=== PATIENT | female | born 1975 | race Caucasian/White ===

== ENCOUNTER 2017-08-24 15:31 | Emergency (ER) | payer SELFPAY ==
[~2017-08-24] VITALS: Ht 162.6 cm; Wt 70.0 kg
[2017-08-24 15:36] VITALS: PULSE 109; RESP 24; TEMP 98.2
[2017-08-24 15:43] VITALS: BP 117/82; PULSE 100
[2017-08-24] MEDS ORDERED: ASPIRIN 81 MG CHEW TAB PO ONE (15:45)
[2017-08-24] MEDS ORDERED: SODIUM CHLORIDE 0.9% FLUSH 10 ML FLUSH IVF PRN (15:45)
[2017-08-24] MEDS ORDERED: LORazepam 2 MG/ML VIAL IV PUSH ONE (15:45)
--- NOTE | 2017-08-24 16:04 | PD ---
HPI . Chest pain and shortness of breath Chief Complaint: Chest Pain Time Seen by Provider: 15:39 Travel History International Travel<30 days: No Contact w/Intl Traveler<30days: No Traveled to known affect area: No History of Present Illness HPI This patient presents to us by [facility] with the chief complaint of chest pain shortness of breath. Her states that it started a couple of hours ago. The patient states that she has been having some chest pain for the last couple of days. He states that she has not complained with chest pain until today. He reports a history of fibromyalgia and SLE which was treated in the [place] with various different medications. These medications made her hallucinate. All medications were eventually stopped. He states that she has not had an episode in 3 years. They have subsequently moved to [facility]. She has not established care since moving here. Onset: 2 hours Quality of pain: Sharp Severity: 9/10 Associated symptoms: Shortness of breath Modifying factors: None Context: History of fibromyalgia and SLE PFSH Past Medical History Autoimmune Disease: Yes (lupus) Fibromyalgia: Yes Tetanus Vaccination: Unknown Influenza Vaccination: No ?: Unknown Past Surgical History Abdominal Surgery: Yes (double hernia repair) Social History Alcohol Use: Yes (occasional) Tobacco Use: Yes (/ ppd) Substance Use: No Allergies-Medications (Allergen,Severity, Reaction): Coded Allergies: No Known Allergies (Unverified , 08/24/17) Reported Meds & Prescriptions Reported Meds & Active Scripts Active No Active Prescriptions or Reported Medications Review of Systems Except as stated in HPI: all other systems reviewed are Neg Physical Exam Narrative GENERAL: The patient presents via EVAC moaning loudly. SKIN: warm/dry. Her face is red. HEAD: Normocephalic. Atraumatic. EYES: Pupils equal and round. No scleral icterus. No injection or drainage. ENT: No nasal bleeding or discharge. Mucous membranes pink and moist. NECK: Trachea midline. Full range of motion without pain.. CARDIOVASCULAR: Regular rate and rhythm. Heart sounds are normal. RESPIRATORY: No accessory muscle use. Clear to auscultation. Breath sounds equal bilaterally. Mild anterior chest wall tenderness. GASTROINTESTINAL: Abdomen soft. Nontender. Bowel sounds present. Nondistended. MUSCULOSKELETAL: No obvious deformities. No calf tenderness or swelling noted. NEUROLOGICAL: Awake and alert. No obvious cranial nerve deficits. Motor grossly within normal limits. Normal speech. PSYCHIATRIC: Appropriate mood and affect; insight and judgment normal. Data Data Last Documented VS Vital Signs Date Time Temp Pulse Resp B/P (MAP) Pulse Ox O2 Delivery O2 Flow Rate FiO2 08/24/17 15:43 100 117/82 (94) 08/24/17 15:36 98.2 24 Orders Orders Electrocardiogram (08/24/17 15:40) Basic Metabolic Panel (Bmp) (08/24/17 15:40) Complete Blood Count With Diff (08/24/17 15:40) D-Dimer (08/24/17 15:40) Magnesium (Mg) (08/24/17 15:40) Prothrombin Time / Inr (Pt) (08/24/17 15:40) Act Partial Throm Time (Ptt) (08/24/17 15:40) Troponin I (08/24/17 15:40) Chest, Single Ap (08/24/17 15:40) Ecg Monitoring (08/24/17 15:40) Iv Access Insert/Monitor (08/24/17 15:40) Oximetry (08/24/17 15:40) Aspirin Chew (Aspirin Chew) (08/24/17 15:45) Sodium Chloride 0.9% Flush (Ns Flush) (08/24/17 15:45) Lorazepam Inj (Ativan Inj) (08/24/17 15:45) Labs Laboratory Tests Test 08/24/17 15:52 White Blood Count 11.5 TH/MM3 Red Blood Count 5.09 MIL/MM3 Hemoglobin 15.0 GM/DL Hematocrit 44.5 % Mean Corpuscular Volume 87.3 FL Mean Corpuscular Hemoglobin 29.4 PG Mean Corpuscular Hemoglobin Concent 33.7 % Red Cell Distribution Width 14.2 % Platelet Count 477 TH/MM3 Mean Platelet Volume 7.5 FL Neutrophils (%) (Auto) 58.5 % Lymphocytes (%) (Auto) 36.3 % Monocytes (%) (Auto) 4.0 % Eosinophils (%) (Auto) 0.3 % Basophils (%) (Auto) 0.9 % Neutrophils # (Auto) 6.8 TH/MM3 Lymphocytes # (Auto) 4.2 TH/MM3 Monocytes # (Auto) 0.5 TH/MM3 Eosinophils # (Auto) 0.0 TH/MM3 Basophils # (Auto) 0.1 TH/MM3 CBC Comment DIFF FINAL Differential Comment Prothrombin Time 9.7 SEC Prothromb Time International Ratio 1.0 RATIO Activated Partial Thromboplast Time 28.8 SEC D-Dimer Quantitative (PE/DVT) 0.48 MG/L FEU Blood Urea Nitrogen 11 MG/DL Creatinine 0.79 MG/DL Random Glucose 87 MG/DL Calcium Level 8.8 MG/DL Magnesium Level 2.3 MG/DL Sodium Level 139 MEQ/L Potassium Level 4.2 MEQ/L Chloride Level 101 MEQ/L Carbon Dioxide Level 23.0 MEQ/L Anion Gap 15 MEQ/L Estimat Glomerular Filtration Rate 81 ML/MIN Troponin I LESS THAN 0.02 NG/ML MDM Medical Decision Making Medical Screen Exam Complete: Yes Emergency Medical Condition: Yes Interpretation(s) EKG shows a sinus tachycardia with no acute ischemic changes. Differential Diagnosis Differential diagnosis of chest pain includes but is not limited to musculoskeletal pain, pulmonary embolism, acute coronary syndrome, pneumonia, pleurisy Narrative Course This patient presents for the evaluation of chest pain or shortness of breath. She has been given aspirin. She has also been given Ativan 2 mg IV. Chest pain workup including a d-dimer are in process. CBC & BMP Diagram 08/24/17 15:52 Calcium Level 8.8, Magnesium Level 2.3 Troponin < 0.02 D-dimer 0.48 Last Impressions Chest X-Ray 08/24/17 1540 Signed Impressions: Service Date/Time: Thursday, August 24, 2017 15:56 - CONCLUSION: 1. No acute cardiopulmonary findings. Toño Luis MD The chest x-ray was independently reviewed by me. The patient is now sound asleep following Ativan. I have discussed her disposition with her . He is comfortable taking her home. He feels that her current episode is related to her fibromyalgia. I will discharge her to home. Diagnosis Primary Impression: Chest pain Qualified Codes: R07.9 - Chest pain, unspecified Additional Impression: Dyspnea Qualified Codes: R06.00 - Dyspnea, unspecified Patient Instructions: Chest Pain (DC), General Instructions, Shortness of Breath (DC) Scripts No Active Prescriptions or Reported Meds Disposition: DISCHARGE HOME Condition: Stable Ebony Bran MD August 24, 2017 16:04
[2017-08-24 16:05] LABS: AUTOMATED NEUTROPHIL # 6.8 TH/MM3 (1.8-7.7); BASOPHIL # 0.1 TH/MM3 (0-0.2); BASOPHIL % 0.9 % (0.0-2.0); EOSINOPHIL % 0.3 % (0.0-4.0); HEMATOCRIT 44.5 % (35.0-46.0); LYMPH % 36.3 % (9.0-44.0); LYMPHOCYTE # 4.2 TH/MM3 (1.0-4.8); MEAN CELL VOLUME 87.3 FL (80.0-100.0); MEAN CORPUSCULAR HEMOGLOBIN 29.4 PG (27.0-34.0); MEAN CORPUSCULAR HGB CONC 33.7 % (32.0-36.0); MEAN PLATELET VOLUME 7.5 FL (7.0-11.0); MONOCYTE # 0.5 TH/MM3 (0-0.9); NEUT % 58.5 % (16.0-70.0); PLATELET COUNT 477 TH/MM3 (150-450); RED BLOOD COUNT 5.09 MIL/MM3 (4.00-5.30); RED CELL DISTRIBUTION WIDTH 14.2 % (11.6-17.2); WHITE BLOOD COUNT 11.5 TH/MM3 (4.0-11.0)
--- NOTE | 2017-08-24 16:14 | RADRPT ---
EXAM DATE/TIME: 08/24/2017 15:56 [facility] COMPARISON: No previous studies available for comparison. INDICATIONS : Patient complains of chest pain. MEDICAL HISTORY : None. SURGICAL HISTORY : None. ENCOUNTER: Initial ACUITY: 2 days PAIN SCORE: 5/10 LOCATION: chest FINDINGS: A single view of the chest demonstrates the lungs to be symmetrically aerated without evidence of mas s, infiltrate or effusion. The cardiomediastinal contours are unremarkable. Osseous structures are intact. CONCLUSION: 1. No acute cardiopulmonary findings. Toño Luis MD on August 24, 2017 at 16:12 Board Certified Radiologist. This report was verified electronically.
[2017-08-24 16:16] LABS: BLOOD UREA NITROGEN 11 MG/DL (7-18); CALCIUM 8.8 MG/DL (8.5-10.1); CHLORIDE 101 MEQ/L (98-107); CREATININE 0.79 MG/DL (0.50-1.00); GLOMERULAR FILTRATION RATE 81 ML/MIN (>89); GLUCOSE,RANDOM 87 MG/DL (74-106); MAGNESIUM 2.3 MG/DL (1.5-2.5); SODIUM (NA) 139 MEQ/L (136-145)
[2017-08-24 16:17] LABS: PROTHROMBIN TIME - PATIENT 9.7 SEC (9.8-11.6)
[2017-08-24 16:20] LABS: TROPONIN I LESS THAN 0.02 NG/ML (0.02-0.05)
[2017-08-24 16:27] LABS: D-DIMER 0.48 MG/L FEU (0.00-0.50)
--- NOTE | 2017-08-25 14:03 | EKG ---
Date Performed: 08/24/2017 Time Performed: 15:37:57 PTAGE: 42 years EKG: SINUS TACHYCARDIA ABNORMAL RHYTHM ECG INTERPRETATION BASED ON A DEFAULT AGE OF 42 YEARS NO PREVIOUS TRACING DOCTOR: Marielle Corbin Interpretating Date/Time 08/25/2017 13:59:13
== END 2017-08-24 17:23 | disposition home or self-care (01) ==
LOC: NEPE 15:31
DX: R07.9 Chest pain, unspecified (principal); R06.02 Shortness of breath; R00.0 Tachycardia, unspecified; F17.200 Nicotine dependence, unspecified, uncomplicated
CPT/HCPCS: 71045; 80048; 83735; 84484; 85025; 85379; 85610; 85730; 93005; 96374; 99285; J2060